=== PATIENT | female | born 1960 | race Caucasian/White ===

== ENCOUNTER 2018-05-29 06:14 | Emergency (ER) | payer OTHER ==
[2018-05-29] MEDS ORDERED: KETOROLAC TROMETHAMINE INJ 30 MG/ML VIAL IV ONE (06:45)
--- NOTE | 2018-05-29 06:50 | ED.PDOC ---
History of Present Illness - General Source: patient Exam Limitations: no limitations - History of Present Illness Initial Comments: C/O PAIN TO HIP. SAT DOWN AND FELT "A POP" WITH ONSET OF SEVERE PAIN. HAD RECENT REVISION OF THE HIP. Occurred: just prior to arrival Pain - Lower Extremity: severe: Right Thigh/Hip Improving Factors: nothing Worsening Factors: nothing <Oswaldo Branham - Last Filed: 05/29/18 06:46> <Christian Dubon - Last Filed: 05/29/18 09:07> - General Chief Complaint: Lower Extremity Injury Stated Complaint: Right hip pain Time Seen by Provider: 05/29/18 06:43 - History of Present Illness Allergies/Adverse Reactions: Allergies Codeine Allergy (Verified 02/22/15 21:26) Home Medications: Ambulatory Orders HYDROcodone 10MG/APAP 325MG [[place] 10325] 1 tab PO 02/20/15 Neurontin 02/20/15 Premarin 02/20/15 Primidone 02/20/15 Soma 02/20/15 Trazodone HCl 02/20/15 fentaNYL PATCH 75 MCG/HR [Duragesic Patch 75 mcg/hr] 75 mcg TD 02/20/15 Ciprofloxacin [Cipro] 500 mg PO BID #14 tab 02/23/15 Review of Systems - Review of Systems Constitutional: Denies: chills, fever EENTM: States: no symptoms reported Gastrointestinal/Abdominal: Denies: nausea, vomiting Musculoskeletal: States: joint pain - RIGHT HIP. Denies: back pain Skin: States: no symptoms reported Neurological: Denies: numbness, paresthesia, weakness Endocrine: States: no symptoms reported Hematologic/Lymphatic: States: no symptoms reported <Oswaldo Branham - Last Filed: 05/29/18 06:46> Past Medical History (General) - Patient Medical History Hx Seizures: - unknown Hx Stroke: - unknown Hx Dementia: - unknown Hx Asthma: - unknown Hx of COPD: - unknown Hx Cardiac Disorders: - unknown Hx Congestive Heart Failure: - unknown Hx Pacemaker: - unknown Hx Hypertension: - unknown Hx Thyroid Disease: - unknown Hx Diabetes: - unknown Hx Gastroesophageal Reflux: - unknown Hx Renal Disease: - unknown Hx Cancer: - unknown Hx of HIV: - unknown Hx Hepatitis C: - unknown Hx MRSA: - unknown - Vaccination History Hx Influenza Vaccination: Yes Hx Pneumococcal Vaccination: No - Social History Hx Tobacco Use: Yes Hx Alcohol Use: No Hx Substance Use: No Hx Substance Use Treatment: No Hx Depression: Yes - Female History Patient : No <Oswaldo Branham - Last Filed: 05/29/18 06:46> Family Medical History - Family History Mother Family History: Unknown <Oswaldo Branham - Last Filed: 05/29/18 06:46> Physical Exam - Physical Exam General Appearance: Obvious distress, Well Developed, Well Nourished Eyes, Ears, Nose, Throat: PERRL/EOMI, normal ENT inspection Neck: non-tender, full range of motion Cardiovascular/Respiratory: regular rate, rhythm, no M/R/G, normal breath sounds , no respiratory distress Gastrointestinal/Abdominal: non-tender, no organomegaly Back: normal inspection, no CVA tenderness, no vertebral tenderness Thigh/Hip: pain, other - KEEPS HIP FLEXED, NVI Leg: normal inspection, no evidence of injury Knee: normal inspection, non-tender Ankle: normal inspection, non-tender Foot: normal inspection, non-tender Neuro/Tendon: normal sensation, normal motor functions Mental Status: alert, oriented x 3 Skin: normal color, warm/dry <Oswaldo Branham - Last Filed: 05/29/18 06:46> Progress - Progress Progress: 05/29/18 06:[address] BRANHAM TO DR DUBON <Oswaldo Branham - Last Filed: 05/29/18 06:46> - Results/Orders Results/Orders: Vital Signs - 8 hr 05/29/18 05/29/18 06:16 06:50 Temperature 97.9 F Pulse Rate [ 80 78 monitor] Respiratory 24 16 Rate Blood Pressure 147/92 136/65 [Left Arm] O2 Sat by Pulse 98 96 Oximetry Patient recieved IV pain medications Morphine sulfate 10 mg ;Propofol 140mg ; Fentanyl 100;Versed 5 mg still screaming with attemmpted reduction of dislocation called up Dr. James orthopedist and advised to come to [facility] since might need to go to or. - EKG/XRAY/CT XRAY: hip - right prosthesis dislocation right <Christian Dubon - Last Filed: 05/29/18 09:07> Procedures - Joint Reduction right hip Conscious Sedation: Yes Reduction Attempts: 4 Pre-Procedure NV Exam: Yes - failed reduction despite sedatin with multiple medications still severe hue Post Joint Reduction Film: joint not reduced <Christian Dubon - Last Filed: 05/29/18 09:07> Departure <Oswaldo Branham - Last Filed: 05/29/18 06:46> - Departure Time of Disposition: 09:07 <Christian Dubon - Last Filed: 05/29/18 09:07> - Departure Clinical Impression: Dislocation of internal right hip prosthesis, initial encounter, Pain, joint, hip, right Disposition: Transfer to Hospital Condition: Fair Departure Forms: Patient Portal Self Enrollment Referrals: Victorino Medina MD [Primary Care Provider] - 1-2 Weeks Home Medications: Ambulatory Orders HYDROcodone 10MG/APAP 325MG [[place] 10325] 1 tab PO 02/20/15 Neurontin 02/20/15 Premarin 02/20/15 Primidone 02/20/15 Soma 02/20/15 Trazodone HCl 02/20/15 fentaNYL PATCH 75 MCG/HR [Duragesic Patch 75 mcg/hr] 75 mcg TD 02/20/15 Ciprofloxacin [Cipro] 500 mg PO BID #14 tab 02/23/15 Transfer to Outside Facility - Transfer Information Accepting Provider:: Dr. Brown Accepting Facility: [facility] Reason for Transfer: to see her orthopedist <Christian Dubon - Last Filed: 05/29/18 09:07>
[2018-05-29] MEDS ORDERED: PROPOFOL 200 MG/20 ML VIAL IV ONE ×3 (07:00→07:45)
--- NOTE | 2018-05-29 07:19 | RAD ---
EXAM: Two view(s) of the right hip. INDICATION: Pain. COMPARISON: None. FINDINGS: There are changes of a right hip arthroplasty with the femoral component dislocated superiorly and laterally from the acetabular cup. There is no acute fracture. Hardware is partially visualized within the distal femur. IMPRESSION: Changes of a right hip arthroplasty with superior and lateral dislocation of the femoral component in relation to the acetabular cup Electronically signed by: Jarrell Ortiz MD 05/29/2018 7:14 AM CDT Workstation: [id number]
[2018-05-29] MEDS ORDERED: SODIUM CHLORIDE 0.9% 1000ML 1,000 ML IVS ONE (07:30)
[2018-05-29] MEDS ORDERED: fentaNYL CITRATE INJ 50 MCG/ML AMP ONE (08:03)
[2018-05-29] MEDS ORDERED: fentaNYL CITRATE INJ 50 MCG/ML AMP IV ONE (08:07)
[2018-05-29] MEDS ORDERED: MIDAZOLAM INJ 5 MG/5 ML VIAL IV ONE (08:08)
[2018-05-29] MEDS ORDERED: SODIUM CHLORIDE 0.9% 1000ML 1,000 ML ONE (08:09)
[2018-05-29] MEDS ORDERED: MIDAZOLAM INJ 5 MG/5 ML VIAL ONE (08:11)
--- NOTE | 2018-05-29 08:45 | RAD ---
PROCEDURE: Hip,Right 2 Views Clinical History: Check post reduction Indication: Same as above Comparison: Prereduction study of the right hip done earlier on the same day. Technique: Single frontal view of the right hip was done. Findings: There continues to be superior dislocation of the femoral component of the right hip arthroplasty, without any significant interval change. The acetabular cup is intact Impression: There continues to be superior dislocation of the femoral component of the right hip arthroplasty, without any significant interval change. Location of Interpretation: Teleradiology Electronically signed by: Cm Sanchez MD 05/29/2018 8:44 AM CDT Workstation: [id number]
[2018-05-29 09:30] VITALS: BP 144/81; TEMP 96.4; O2SAT 100
== END 2018-05-29 09:23 | disposition short-term general hospital (02) ==
LOC: ER 06:14
DX: T84.020A Dislocation of internal right hip prosthesis, initial encounter (principal); Z87.891 Personal history of nicotine dependence
CPT/HCPCS: 27265; 73502; 99285; J1885; J2250; J3010; J3490; J7030

== ENCOUNTER 2018-06-16 15:41 | Emergency (ER) | payer OTHER ==
[2018-06-16] MEDS ORDERED: PROPOFOL 200 MG/20 ML VIAL IV ONE ×3 (15:44→16:02)
[2018-06-16] MEDS ORDERED: MIDAZOLAM INJ 5 MG/5 ML VIAL IV ONE (15:44)
[2018-06-16] MEDS ORDERED: MIDAZOLAM INJ 5 MG/5 ML VIAL ONE (15:46)
--- NOTE | 2018-06-16 16:06 | RAD ---
Right hip 2 views INDICATION: Dislocation IMPRESSION: Total right hip arthroplasty. The femur and femoral components are dislocated superiorly. This location in the AP axis cannot be determined. The head of the femoral component projects over the iliac bone. Mild lucency surrounding the acetabular component. No osteolysis or fracture along the femoral component Electronically signed by: Conner Anthony MD 06/16/2018 4:04 PM [facility]
--- NOTE | 2018-06-16 16:37 | ED.PDOC ---
History of Present Illness - General Chief Complaint: Lower Extremity Injury Stated Complaint: R hip dislocation Time Seen by Provider: 06/16/18 16:07 Source: patient Exam Limitations: no limitations - History of Present Illness Initial Comments: Stephanie Ding 57 y/o female with history of r hip replacement and had closed reduction of her dislcated hip prostheses last week at [facility] brought by EMS after having severe sharp hip pain hip pain as she stood up from her chair about an hour ago and pain on weight bearing of her right hip.Sent to [facility]- last week since patient was already given high dose narcotics and still screaming from pain.Denies history of fall. Occurred: just prior to arrival Pain - Lower Extremity: severe: Right Thigh/Hip Method of Injury: other - NO INJURY Improving Factors: rest Worsening Factors: movement Associated Symptoms: see hpi Allergies/Adverse Reactions: Allergies Codeine Allergy (Verified 06/16/18 16:31) Home Medications: Ambulatory Orders HYDROcodone 10MG/APAP 325MG [[place] 10/325] 1 tab PO 02/20/15 Neurontin 02/20/15 Premarin 02/20/15 Primidone 02/20/15 Soma 02/20/15 Trazodone HCl 02/20/15 fentaNYL PATCH 75 MCG/HR [Duragesic Patch 75 mcg/hr] 75 mcg TD 02/20/15 Ciprofloxacin [Cipro] 500 mg PO BID #14 tab 02/23/15 Review of Systems - Review of Systems Musculoskeletal: States: joint pain - right hip All other Systems: Reviewed and Negative, No Change from Baseline Past Medical History (General) - Patient Medical History Hx Seizures: - unknown Hx Stroke: - unknown Hx Dementia: - unknown Hx Asthma: - unknown Hx of COPD: - unknown Hx Cardiac Disorders: - unknown Hx Congestive Heart Failure: - unknown Hx Pacemaker: - unknown Hx Hypertension: - unknown Hx Thyroid Disease: - unknown Hx Diabetes: - unknown Hx Gastroesophageal Reflux: - unknown Hx Renal Disease: - unknown Hx Cancer: - unknown Hx of HIV: - unknown Hx Hepatitis C: - unknown Hx MRSA: - unknown Surgical History: other - hip surgery - Vaccination History Hx Influenza Vaccination: Yes Hx Pneumococcal Vaccination: No - Social History Hx Tobacco Use: Yes Hx Alcohol Use: No Hx Substance Use: No Hx Substance Use Treatment: No Hx Depression: Yes - Female History Patient : No Family Medical History - Family History Mother Family History: Unknown Physical Exam - Physical Exam General Appearance: Alert, Other - in pain Eyes, Ears, Nose, Throat: normal ENT inspection Neck: non-tender, supple, normal inspection Cardiovascular/Respiratory: regular rate, rhythm, no M/R/G, normal peripheral pulses Gastrointestinal/Abdominal: non-tender Back: no CVA tenderness, no vertebral tenderness Thigh/Hip: deformity - hip adducted/internal rotation, limited ROM - paiful right hip, soft tissue tenderness Leg: normal inspection, non-tender, no evidence of injury Knee: normal inspection, non-tender, no evidence of injury Ankle: non-tender, no evidence of injury Foot: normal inspection, non-tender, no evidence of injury Progress - Progress Progress: 06/16/18 16:57 Vital Signs - 8 hr 06/16/18 15:41 Temperature 98.7 F Pulse Rate [ 92 H Left Radial] Respiratory 24 Rate Blood Pressure 150/93 [Left Arm] O2 Sat by Pulse 93 L Oximetry 06/16/18 16:57 Attempted reduction of right hip dislocation under conscious sedation with Propofol ;Versed and initially given Morphine sulfate 5 mg by EMS unable to reduce dislocation hip was so very tight. - EKG/XRAY/CT XRAY: hip - right posteriorly dislocated hip prosthesis Departure - Departure Clinical Impression: Recurrent dislocation of hip joint prosthesis Qualifiers: Encounter type: initial encounter Qualified Code(s): T84.029A - Dislocation of unspecified internal joint prosthesis, initial encounter Time of Disposition: 16:55 Disposition: Transfer to Hospital Condition: Fair Departure Forms: Patient Portal Self Enrollment Referrals: Victorino Medina MD [Primary Care Provider] - 1-2 Weeks Home Medications: Ambulatory Orders HYDROcodone 10MG/APAP 325MG [[place] 10/325] 1 tab PO 02/20/15 Neurontin 02/20/15 Premarin 02/20/15 Primidone 02/20/15 Soma 02/20/15 Trazodone HCl 02/20/15 fentaNYL PATCH 75 MCG/HR [Duragesic Patch 75 mcg/hr] 75 mcg TD 02/20/15 Ciprofloxacin [Cipro] 500 mg PO BID #14 tab 02/23/15 Transfer to Outside Facility - Transfer Information Accepting Provider:: D/W -Orthopedist and Dr. [id number] Accepting Facility: [facility] Reason for Transfer: Her orthopedist
[2018-06-16] MEDS ORDERED: MORPHINE SULFATE INJ 10 MG/ML VIAL IV ONE (17:16)
[2018-06-16] MEDS ORDERED: PROMETHAZINE HCL INJ 25 MG in SODIUM CHLORIDE 0.9% 50ML 50 ML IVPB ONE (17:16)
[2018-06-16] MEDS ORDERED: SODIUM CHLORIDE 0.9% 50ML 50 ML ONE (17:18)
[2018-06-16] MEDS ORDERED: PROMETHAZINE HCL INJ 25 MG/ML VIAL ONE (17:18)
[2018-06-16 17:35] VITALS: BP 118/69; TEMP 97.2; O2SAT 97
== END 2018-06-16 17:33 | disposition short-term general hospital (02) ==
LOC: ER 15:41
DX: T84.020A Dislocation of internal right hip prosthesis, initial encounter (principal); F32.9 Major depressive disorder, single episode, unspecified; X50.9XXA Other and unspecified overexertion or strenuous movements or postures, initial encounter; Z88.5 Allergy status to narcotic agent; Z79.899 Other long term (current) drug therapy; Z87.891 Personal history of nicotine dependence
CPT/HCPCS: 73502; 94770; A4216; J2250; J2270; J2550; J3490

== ENCOUNTER 2019-02-14 13:48 | Emergency (ER) | payer OTHER ==
[2019-02-14 14:19] VITALS: BP 124/85; TEMP 96.6; O2SAT 96
--- NOTE | 2019-02-14 14:44 | ED.PDOC ---
History of Present Illness - General Chief Complaint: Upper Extremity Injury Stated Complaint: right thumb injury Time Seen by Provider: 02/14/19 14:40 Source: patient Exam Limitations: no limitations - History of Present Illness Initial Comments: PT PRESENTS TO THE ED WITH COMPLAINT OF RIGHT THUMB PAIN AND SWELLING AFTER FALLING ON HER OUTSTRETCHED HAND YESTERDAY. Occurred: yesterday Pain - Upper Extremity: moderate: Hand, right Method of Injury: fell Improving Factors: immobilization Worsening Factors: movement Allergies/Adverse Reactions: Allergies NO KNOWN ALLERGY Allergy (Verified 02/14/19 14:20) Home Medications: Ambulatory Orders HYDROcodone 10MG/APAP 325MG [[place] 10/325] 1 tab PO 02/20/15 Neurontin 02/20/15 Premarin 02/20/15 Primidone 02/20/15 Soma 02/20/15 Trazodone HCl 02/20/15 fentaNYL PATCH 75 MCG/HR [Duragesic Patch 75 mcg/hr] 75 mcg TD 02/20/15 Ciprofloxacin [Cipro] 500 mg PO BID #14 tab 02/23/15 Review of Systems - Review of Systems Constitutional: Denies: chills, fever Gastrointestinal/Abdominal: Denies: nausea, vomiting Musculoskeletal: States: see HPI, joint pain, joint swelling Neurological: Denies: headache, paresthesia Past Medical History (General) - Patient Medical History Hx Seizures: - unknown Hx Stroke: - unknown Hx Dementia: - unknown Hx Asthma: - unknown Hx of COPD: - unknown Hx Cardiac Disorders: - unknown Hx Congestive Heart Failure: - unknown Hx Pacemaker: - unknown Hx Hypertension: - unknown Hx Thyroid Disease: - unknown Hx Diabetes: - unknown Hx Gastroesophageal Reflux: - unknown Hx Renal Disease: - unknown Hx Cancer: - unknown Hx of HIV: - unknown Hx Hepatitis C: - unknown Hx MRSA: - unknown - Vaccination History Hx Tetanus, Diphtheria Vaccination: Yes Hx Influenza Vaccination: No Hx Pneumococcal Vaccination: No - Social History Hx Tobacco Use: Yes Hx Alcohol Use: No Hx Substance Use: No Hx Substance Use Treatment: No Hx Depression: Yes - Female History Patient : No Family Medical History - Family History Mother Family History: Unknown Physical Exam - Physical Exam General Appearance: Alert, No apparent distress, Well Developed, Well Groomed, Well Hydrated, Well Nourished Cardiovascular/Respiratory: no respiratory distress Shoulder Exam: non-tender, no evidence of injury Elbow/Forearm Exam: non-tender, no evidence of injury Wrist Exam: non-tender, no evidence of injury Hand Exam: ecchymosis - RIGHT THUMB, limited ROM - RIGHT THUMB, soft tissue tenderness - TO THE RIGHT THUMB, swelling - RIGHT THUMB Neuro/Tendon: normal sensation, responds to pain Mental Status: alert, oriented x 3 Skin Exam: normal color, warm/dry Departure - Departure Clinical Impression: Fracture of thumb Time of Disposition: 15:27 Disposition: Discharge to Home or Self Care Condition: Good Departure Forms: ED Discharge - Pt. Copy, Patient Portal Self Enrollment Instructions: Finger Fracture (DC) Referrals: Rey Reed MD [Active Staff] - 1-5 Days Home Medications: Ambulatory Orders HYDROcodone 10MG/APAP 325MG [[place] 10/325] 1 tab PO 02/20/15 Neurontin 02/20/15 Premarin 02/20/15 Primidone 02/20/15 Soma 02/20/15 Trazodone HCl 02/20/15 fentaNYL PATCH 75 MCG/HR [Duragesic Patch 75 mcg/hr] 75 mcg TD 02/20/15 Ciprofloxacin [Cipro] 500 mg PO BID #14 tab 02/23/15
[2019-02-14] MEDS ORDERED: IBUPROFEN 200 MG TAB PO ONE (14:46)
--- NOTE | 2019-02-14 15:14 | RAD ---
EXAM DESCRIPTION: Fingers,Right CLINICAL HISTORY: 58 years Female, pain,swelling in right thumb COMPARISON: None. FINDINGS: Diffuse osteopenia of the visualized bones noted. Volar plate avulsion fracture at the base of the thumb proximal phalanx, with probable intra-articular extension. The overlying soft tissues appear grossly unremarkable. IMPRESSION: 1. Volar plate avulsion fracture at the base of thumb proximal phalanx with intra-articular extension. Electronically signed by: Nixon Samaniego MD 02/14/2019 3:12 PM CDT
== END 2019-02-14 16:10 | disposition home or self-care (01) ==
LOC: ER 13:48
DX: S62.511A Displaced fracture of proximal phalanx of right thumb, initial encounter for closed fracture (principal); F32.9 Major depressive disorder, single episode, unspecified; Z87.891 Personal history of nicotine dependence; W19.XXXA Unspecified fall, initial encounter; Y92.9 Unspecified place or not applicable

== ENCOUNTER → 2019-03-01 | Outpatient (CLI) | payer OTHER ==
--- NOTE | 2019-03-01 17:48 | RAD ---
EXAM DESCRIPTION: Thumb,Right CLINICAL HISTORY: 58 years Female, M79.672 COMPARISON: 02/14/2019. FINDINGS/IMPRESSION: Three views of the right thumb demonstrate healing volar plate avulsion fracture of the thumb distal phalanx base with interval increase callus formation (and decrease fracture lucency). The osseous alignment including mild dorsal subluxation at the thumb IP joint is unchanged. Electronically signed by: Pranay Gibson DO 03/01/2019 5:47 PM CDT
== END ==
LOC: RAD 07:58
PROVIDERS: ATTEND Orthopaedic Surgery
DX: S62.521D Displaced fracture of distal phalanx of right thumb, subsequent encounter for fracture with routine healing (principal); S63.12 Subluxation and dislocation of interphalangeal joint of thumb

== ENCOUNTER → 2019-03-09 | Outpatient (CLI) | payer OTHER ==
--- NOTE | 2019-03-09 11:25 | RAD ---
PROVIDED CLINICAL HISTORY/REASON FOR EXAM: M25.561/M25.551 Findings: Number of images: Four Location: Right knee Right total knee arthroplasty with longstem femoral and tibial components. No hardware complication. No acute fracture or dislocation. No focal soft tissue swelling. No significant joint effusion. IMPRESSION: Right total knee arthroplasty. No hardware complication. Electronically signed by: Chuck Barajas MD 03/09/2019 11:24 AM CDT
--- NOTE | 2019-03-09 11:27 | RAD ---
PROVIDED CLINICAL HISTORY/REASON FOR EXAM: M25.561/M25.551 Findings: Number of images: One Location: Pelvis Right total hip arthroplasty. No evidence of hardware complication. Surgical clips overlying the left pelvis. Pelvic phleboliths. Lower lumbar spondylosis. Minimal bilateral sacroiliac joint space narrowing. Moderate to severe left hip joint space narrowing with subchondral sclerosis and cyst formation. No acute fracture or dislocation. IMPRESSION: Chronic degenerative and postoperative changes about the pelvis. No evidence of acute process. Electronically signed by: Chuck Barajas MD 03/09/2019 11:25 AM CDT
== END ==
LOC: RAD 08:58
PROVIDERS: ATTEND Orthopaedic Surgery
DX: M16.0 Bilateral primary osteoarthritis of hip (principal); M25.561 Pain in right knee; Z96.641 Presence of right artificial hip joint; Z96.651 Presence of right artificial knee joint; Z98.890 Other specified postprocedural states

== ENCOUNTER → 2019-03-16 | Outpatient (CLI) | payer OTHER ==
--- NOTE | 2019-03-16 17:06 | NM ---
EXAM DESCRIPTION: Bone Scan, 3Phase: Nuclear Medicine CLINICAL HISTORY: 58 years Female OTHER MECHANICAL COMPLICATION OF INTERNAL RIGHT KNEE PROTHESIS. Right total knee arthroplasty with pain. Afebrile. COMPARISON: Radiographs right knee March 09 2019. TECHNIQUE: Patient injected with 25.8 mCi of technetium 99M MDP IV. Immediate flow gamma camera images were obtained of the bilateral knees from various planes. "Blood pool" images were then obtained of the bilateral knees from various planes. Delayed gamma camera images of the bilateral knees from various planes were obtained 3 hr after injection. FINDINGS: dynamic-flow phase: increased vascular flow in the right superficial femoral artery and increased activity around the right total knee arthroplasty. "Blood pool" phase: increased vascular flow around the right total knee arthroplasty. The arthroplasty hardware shows typical photopenic activity. Delayed phase (3 hours postinjection): Increased activity around the tibia and fibular components on the right at the articulation. Increased activity is also noted at the tip of the femoral stem and the tip of the tibial stem. Typical photopenic appearance of the components. IMPRESSION: Abnormal activity and uptake in the vascular structures, soft tissues, and bone around the right total knee arthroplasty is consistent with loosening of the right total knee arthroplasty tibial and femoral components. Not clinically consistent with inflammatory or infectious process. Electronically signed by: Alexi Michaud MD 03/16/2019 5:05 PM CDT
== END ==
LOC: NM 08:12
PROVIDERS: ATTEND Orthopaedic Surgery
DX: T84.092A Other mechanical complication of internal right knee prosthesis, initial encounter (principal); Z96.651 Presence of right artificial knee joint
CPT/HCPCS: 78315; A9503

== ENCOUNTER → 2019-03-16 | Outpatient (CLI) | payer OTHER | LOC: LAB.O 08:45 | PROVIDERS: ATTEND Internal Medicine Interventional Cardiology | DX: Z00.00 Encounter for general adult medical examination without abnormal findings (principal); M25.561 Pain in right knee; M19.90 Unspecified osteoarthritis, unspecified site ==

== ENCOUNTER 2019-03-18 13:04 | Emergency (ER) | payer OTHER ==
[2019-03-18] MEDS ORDERED: MIDAZOLAM INJ 5 MG/5 ML VIAL IV ONE (13:05)
[2019-03-18] MEDS ORDERED: SODIUM CHLORIDE 0.9% 1000ML 1,000 ML IVS ONE (13:05)
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
[2019-03-20 12:51] VITALS: TEMP 100.8
[2019-03-20 13:18] VITALS: BP 153/114; O2SAT 98
== END 2019-03-18 13:35 | disposition short-term general hospital (02) ==
LOC: EDBD 13:04 → ER 13:04 → MERGE 13:04 → ER 13:35
DX: S06.9X9A Unspecified intracranial injury with loss of consciousness of unspecified duration, initial encounter (principal); R40.2431 Glasgow coma scale score 3-8, in the field [EMT or ambulance]; S22.42XA Multiple fractures of ribs, left side, initial encounter for closed fracture; S22.31XA Fracture of one rib, right side, initial encounter for closed fracture; S42.001A Fracture of unspecified part of right clavicle, initial encounter for closed fracture; R04.0 Epistaxis; S30.810A Abrasion of lower back and pelvis, initial encounter; V29.40XA Motorcycle driver injured in collision with unspecified motor vehicles in traffic accident, initial encounter; Y92.410 Unspecified street and highway as the place of occurrence of the external cause
CPT/HCPCS: 80048; 85025; 94770; J2250; J7030